=== PATIENT | male | born 1965 | race Caucasian/White ===

== ENCOUNTER 2022-10-05 11:58 | Day surgery (SDC) | payer BC ==
[2022-10-05] MEDS ORDERED: LIDOCAINE HCL 1% 50 MG/5 ML VL PF IJ ONE (11:59)
[2022-10-05] MEDS ORDERED: DIPRIVAN 200 MG/20 ML IV ONE ×2 (14:23→14:34)
[2022-10-05] MEDS ORDERED: Versed 2 MG/2 ML Injection ONE (14:29)
--- NOTE | 2022-10-05 15:19 | XRAY ---
Indication: Right L4-S1 MBB. Intraoperative fluoroscopy provided for 15 seconds. Single digital spot image submitted for interpretation demonstrates posterior needle tips projecting over the expected left and right L4-S1 nerve roots. Correlate with intraoperative findings/report.
[2022-10-05] MEDS ORDERED: Lactated Ringers 1,000 ML IV ONE (15:44)
--- NOTE | 2022-10-05 17:07 | XRAY ---
15 seconds of fluoroscopy was used in surgery for a right L4-S1 MBB.
== END 2022-10-05 15:00 | disposition home or self-care (01) ==
LOC: SDC-PAIN 11:58
PROVIDERS: ATTEND Psychiatry & Neurology Pain Medicine
DX: M47.816 Spondylosis without myelopathy or radiculopathy, lumbar region (principal)
CPT/HCPCS: 64493; 64494; 72020; 77002; J2001; J2250; J2704

== ENCOUNTER 2022-11-09 10:36 | Day surgery (SDC) | payer BC ==
[2022-11-09] MEDS ORDERED: BUPIVACAINE 0.5% VIAL IJ ONE (10:37)
[2022-11-09] MEDS ORDERED: DIPRIVAN 200 MG/20 ML IV ONE (12:13)
[2022-11-09] MEDS ORDERED: Lactated Ringers 1,000 ML IV ONE (14:16)
--- NOTE | 2022-11-09 16:13 | XRAY ---
Indication: Right L4-S1 MBB. Intraoperative fluoroscopy provided 11 seconds. Single digital spot image submitted for interpretation demonstrates posterior needle tips projecting over the expected left and right L4-S1 nerve roots. Correlate with intraoperative findings/report.
--- NOTE | 2022-11-09 19:41 | XRAY ---
11 seconds of fluoroscopy was used in surgery for a right L4-S1 MBB.
== END 2022-11-09 12:19 | disposition home or self-care (01) ==
LOC: SDC-PAIN 10:36
PROVIDERS: ATTEND Psychiatry & Neurology Pain Medicine
DX: M47.816 Spondylosis without myelopathy or radiculopathy, lumbar region (principal)
CPT/HCPCS: 64493; 64494; 72020; 77002; J2704

== ENCOUNTER 2023-08-09 08:26 | Day surgery (SDC) | payer BC ==
[2023-08-09] MEDS ORDERED: BUPIVACAINE 0.5% VIAL IJ ONE (08:27)
[2023-08-09] MEDS ORDERED: XYLOCAINE-MPF 1% 5ML SDV IJ ONE (08:27)
[2023-08-09] MEDS ORDERED: Depo-Medrol 40 MG/ML IM ONE (08:27)
[2023-08-09] MEDS ORDERED: DIPRIVAN 200 MG/20 ML IV ONE (10:11)
--- NOTE | 2023-08-09 10:41 | XRAY ---
Indication: Right L4-S1 RFA Intraoperative fluoroscopy provided for 20 seconds. 5 digital spot image submitted for interpretation demonstrates posterior needle tips projecting over the expected right L4-S1 nerve roots. Correlate with intraoperative findings/report.
--- NOTE | 2023-08-09 10:57 | XRAY ---
20 seconds of fluoroscopy was used in surgery for a right L4-S1 RFA.
[2023-08-09] MEDS ORDERED: Lactated Ringers 1,000 ML IV ONE (11:08)
== END 2023-08-09 10:45 | disposition home or self-care (01) ==
LOC: SDC-PAIN 08:26
PROVIDERS: ATTEND Psychiatry & Neurology Pain Medicine
DX: M47.816 Spondylosis without myelopathy or radiculopathy, lumbar region (principal)
CPT/HCPCS: 64635; 64636; 72100; 77002; J1030; J2704

== ENCOUNTER 2023-08-16 10:35 | Day surgery (SDC) | payer BC ==
[2023-08-16] MEDS ORDERED: Depo-Medrol 40 MG/ML IM ONE (10:36)
[2023-08-16] MEDS ORDERED: XYLOCAINE-MPF 1% 5ML SDV IJ ONE (10:36)
[2023-08-16] MEDS ORDERED: BUPIVACAINE 0.5% VIAL IJ ONE (10:36)
[2023-08-16] MEDS ORDERED: Lactated Ringers 1,000 ML IV ONE (12:18)
[2023-08-16] MEDS ORDERED: DIPRIVAN 200 MG/20 ML IV ONE ×2 (12:33→12:41)
--- NOTE | 2023-08-16 14:43 | XRAY ---
Indication: Left L4-S1 RFA. Intraoperative fluoroscopy provided for 20 seconds. 4 digital spot images submitted for interpretation demonstrates posterior needle tips projecting over the expected left L4-S1 nerve roots. Correlate with intraoperative findings/report.
--- NOTE | 2023-08-16 14:47 | XRAY ---
20 seconds of fluoroscopy was used in surgery for a left L4-S1 RFA.
== END 2023-08-16 13:08 | disposition home or self-care (01) ==
LOC: SDC-PAIN 10:35
PROVIDERS: ATTEND Psychiatry & Neurology Pain Medicine
DX: M47.816 Spondylosis without myelopathy or radiculopathy, lumbar region (principal)
CPT/HCPCS: 64635; 64636; 72100; 77002; J1030; J2704